=== PATIENT | female | born 1980 | race Hispanic/Latino ===

== ENCOUNTER 2022-01-06 01:23 | Day surgery (SDC) | payer BC, SELFPAY ==
[2022-01-02 13:48] VITALS: BMI 20.9
--- NOTE | 2022-01-02 13:50 | SUR.PREOP ---
Report to the Outpatient Waiting Room, entrance under the green pavilion located off [facility], at time _0830 on date _01/06/22 . OR Time: _1030 . Time changes happen often and if your time is changed the preop area will call you the afternoon before. - You and your visitor will be asked to self-screen and do not enter if you have any COVID symptoms. - Only one visitor and NO children visitors are allowed at this time. - The patient visitor is requested to leave or wait in car when not with patient due to restrictions. - A mask is required within the hospital. Patients may have clear liquids (water, carbonated beverages, clear teas, apple juice) until 3 hours prior to surgery with a maximum of 20 ounces. - No food from midnight until time of surgery - Infants may have breast milk until 4 hours before surgery, formula 6 hours prior to surgery. - Children will be allowed to drink immediately following surgery. If applicable, please bring a bottle or sippy cup to assist with drinking. Juice, water, soda, and popsicles are readily available. For infants on formula, please bring formula the day of surgery. Pacifiers are allowed. Take the following medications with a SIP of water the morning of surgery: ___n/a Medications to discontinue per physician n/a Date to take last dose___n/a Please no make-up, nail turkmen, hairspray, perfume, deodorant, or body powder the day of surgery. No jewelry (including any body piercings) or valuables the day of surgery, leave them at home. Please take a shower or bath the night before, or the morning of, surgery with an antibacterial soap. Wear comfortable, loose fitting clothing. Children are encouraged to wear pajamas. - Jewelry must be removed prior to entering the operating room. Rings and piercings that are not removed may be cut off. - The hospital will not accept responsibility for valuables. - Please leave all valuables, including medications, at home the day of surgery. If you are going home after surgery, a licensed dump truck driver must drive you home. - NO public transportation without another adult. - We recommend that an adult stay with you for 24 hours following discharge. - We also recommend that you do not drive, make important decision, drink alcoholic beverages, or take any drugs that were not prescribed by your health care provider for at least 24 hours after your discharge time. For Pediatric surgeries, we recommend two adults accompany the child home (only one inside the building at this time). Follow any additional instructions given to you from your surgeon. If you or anyone in your household have experienced Covid symptoms in the past week, please notify your surgeon or the nurse liaison at the phone number below for possible testing. Telephone instructions given to messi grossman and asked if any additional questions and then verbalized understanding. Patient advised to call surgeon office or pre surgery nurse liaison [phone] if any additional questions.
--- NOTE | 2022-01-05 17:44 | PM.IMHP ---
H&P: HPI History of Present Illness Date/Time: 01/05/22 17:44 Chief Complaint: High grade cervical dysplasia Narrative: Patient is a 41yo woman with history of MICAELA 1-2 who presents for a scheduled LEEP. Patient had a pap smear showing LGSIL in 10/2021. A colposcopy was performed and biopsies were positive for MICAELA 1-2 as well as a positive ECC that showed low grade dysplasia. Discussion had with patient and decision made proceed with LEEP procedure for further management. In general, patient reports feeling well today without complaints. Review of Systems Review of Systems: All systems reviewed & are unremarkable except as noted in HPI and below Constitutional: Constitutional: Reports as per HPI and Reports no additional constitutional complaints Eyes: Eyes: Reports as per HPI and Reports no additional eye complaints ENT: Reports system reviewed and no additional complaints, except as documented and Reports as per HPI Cardiovascular: Cardiovascular: Reports as per HPI and Reports no additional cardiovascular complaints Respiratory: Respiratory: Reports as per HPI and Reports no additional respiratory complaints Gastrointestinal: Gastrointestinal: Reports as per HPI and Reports no additional gastrointestinal complaints Genitourinary: Genitourinary: Reports no additional female genitourinary complaints and Reports as per HPI Musculoskeletal: Musculoskeletal: Reports no additional musculoskeletal complaints and Reports as per HPI Integumentary/Breasts: Skin/Breast: Reports system reviewed and no additional complaints, except as docu and Reports as per HPI Neurologic: Reports system reviewed and no additional complaints, except as documented and Reports as per HPI Psychiatric: Psychiatric: Reports no additional psychiatric complaints and Reports as per HPI Endocrine: Endocrine: Reports no additional endocrine complaints and Reports as per HPI Hematologic/Lymphatic: Hematologic/Lymphatic: Reports no additional hematologic/lymphatic complaints and Reports as per HPI Allergic/Immunologic: Allergic/Immunologic: Reports no additional allergic/immunologic complaints and Reports as per HPI PMFSH Past Medical History Medical History History of miscarriage LGSIL on Pap smear of cervix Surgical History Surgical History History of section x 2 [place] teeth removed Family History Family History Grandparent Breast cancer Other Diabetes mellitus Social History Social History Smoking status: Never smoker Alcohol intake: current Drinks per week: 10 Spiritual care concerns: No Meds Home Medications and Allergies Home Medications Medication Instructions Recorded Confirmed Type drospirenone 3 mg-estetrol 14.2 mg See Rx Instructions PO .COMPLEX #3 11/10/21 01/02/22 Rx (28) tablet ([facility]) packets Allergies Allergy/AdvReac Type Severity Reaction Status Date / Time No Known Allergies Allergy Verified 01/02/22 13:38 Exam Const: General: cooperative, healthy appearing, comfortable and no acute distress HENMT: Head: normal to inspection Ears: hearing grossly normal bilaterally Eyes: General: appearance normal, both eyes and all related structures Neck: Neck: normal visual inspection Resp: Effort & Inspection: normal respiratory effort Auscultation: clear to auscultation bilaterally Cardio: Rate: regular rate Rhythm: regular rhythm GI: Inspection: non-distended GI Palp: Yes Soft to palpation and No Tenderness to palpation present (GI) : Other: deferred to OR Back/Spine/Pelvis: Back: no CVA tenderness Skin: General skin exam: normal color and no rashes or lesions noted Neuro: General: patient oriented x3 Extrem: Right lower extremity: no edema Left l
[2022-01-06 09:14] VITALS: BP 113/69; PULSE 62; RESP 16; TEMP 36.6; O2SAT 100
--- NOTE | 2022-01-06 09:25 | P.PNAN_ITS ---
Anes - Initial Pre Proc Eval Procedure: Operation Date: 01/06/22 10:30 Proposed Procedures p Loop Electrical Excision Procedure - Nayla Ramirez MD Date/Time: 01/06/22 09:25 Surgeon: Nayla Ramirez MD Pre Op Diagnosis: cin1-2 Patient Data Age: 41 Gender: F Height: 1.6 m Weight: 53.63 kg Allergies Allergy/AdvReac Type Severity Reaction Status Date / Time No Known Allergies Allergy Verified 01/02/22 13:38 Home Medications Medication Instructions Recorded Confirmed Type drospirenone 3 mg-estetrol 14.2 mg See Rx Instructions PO .COMPLEX #3 11/10/21 01/02/22 Rx (28) tablet (Nextstell[facility]) packets Patient hx anesthesia problems: none Family hx anesthesia problems: none Results Review: All pre-operative results and documents have been reviewed as part of the pre-operative evaluation. [facility] Past Medical History Medical History History of miscarriage LGSIL on Pap smear of cervix Surgical History Surgical History History of section x 2 [place] teeth removed Family History Family History Grandparent Breast cancer Other Diabetes mellitus Social History Social History Smoking status: Never smoker Alcohol intake: current Drinks per week: 10 Living arrangements: with family Spiritual care concerns: No Anes - Eval Final PreProcedure Day of Procedure 01/06/22 09:25 Patient weight: normal Heart: regular rate and rhythm Lungs: clear to auscultation Airway: Mallampati scale class II Neurological: alert and oriented Last oral intake: >/= 8 hours ASA classification: I Emergent: no Anesthetic plan: proceed Anesthesia type and monitoring: general GIVS and standard monitoring Results Review: All pre-operative results and documents have been reviewed as part of the pre- operative evaluation. Informed Consent: The patient's anesthetic plan and its attendant risks and benefits were discussed with the patient/family/POA. Questions were solicited and answers provided to the satisfaction of the patient/family/POA.
[2022-01-06] MEDS: ACETAMINOPHEN 500 MG TABLET 1000 MG PO (09:29)
[2022-01-06] MEDS: LACTATED RINGERS 1,000 ML 30 ML IV CONT (09:34)
--- NOTE | 2022-01-06 09:45 | WPDHPUPDATE1 ---
History and Physical Update Update Date/Time: 01/06/22 09:45 History and Physical has been reviewed, including an updated exam of the patient. There are NO changes in the patient's condition. Risks, benefits, and alternatives have been discussed and questions answered. Patient agrees to proceed with procedure.
[2022-01-06] MEDS: KETOROLAC 30 MG/ML VIAL (*BKC) IV PUSH (09:50)
[2022-01-06] MEDS: IODINE/POTASSIUM IODIDE 8 ML SOLUTION TOPICAL (10:00)
[2022-01-06] MEDS: LIDOCAINE HCL 1% PF 30 ML VIAL 10 ML INFILTRATE (10:20)
[2022-01-06 10:29] VITALS: BP 93/47; PULSE 56; RESP 12; O2SAT 100
--- NOTE | 2022-01-06 10:41 | W.PM.PROC2 ---
Procedure Note - Detailed Date of Procedure 01/06/22 Pre-op Diagnosis MICAELA 1-2, positive ECC Post-op Diagnosis Same Procedure Performed Loop electrosurgical excision procedure Surgeon Nayla Ramirez MD Anesthesia MAC Findings wide area of non-uptake noted circumferentially around cervix Description of Procedure The patient was taken to the operating room where she self-transferred to the operating room table. She was placed in dorsal supine position. Anesthesia was administered and found to be adequate. The patient was repositioned in dorsal lithotomy position and prepped and draped in the usual sterile fashion. A coated bivalve speculum was inserted into the vagina and suction tubing was connected to the speculum. The cervix was well visualized. A paracervical block was performed with 1% lidocaine.? 5 cc of lidocaine was administered on both sides for a total of 10 cc. Lugol's solution was applied across the entire surface of the cervix. A wide area of non-uptake was visualized circumferentially around the cervix. A large-size loop was selected and connected to the electrical generator. This loop was used to make one pass across the anterior surface of the cervix. The specimen was removed and set aside. A second small pass along the superior aspect of the cervix was then made to ensure complete excision of the area of non-uptake. A top hat loop was then used to excise a deeper portion of the endocervical canal and this specimen was also set aside. Rollerball cautery was used to cauterize the entire excision site and margins of the excision bed. Excellent hemostasis was noted. The procedure was deemed complete. The vagina was dried and the speculum was removed. Specimen were prepared to be sent to pathology for analysis and tagged with a suture at 12:00. The patient was cleansed and dried.? She was taken out of the dorsal lithotomy position and awakened from anesthesia without difficulty.? She was transported to the recovery room in stable condition.? All sponge and instrument counts were correct at the end of the procedure. Estimated Blood Loss -5.0 IV Fluids 600 Urine Output -50.0 Drains No Packing No Pathology Yes (anterior portion of cervix (tagged at 12:00); top hat cervix (tagged at 12:00)) Complications No immediate complications Condition Stable Disposition PACU [facility] Billing Surgery - Charge Forward: Surgery Billing
[2022-01-06 11:59] VITALS: BP 91/63; PULSE 50; RESP 12
== END 2022-01-06 11:16 | disposition home or self-care (01) ==
PROVIDERS: Visit Provider Student in an Organized Health Care Education/Training Program
PROC: 0UBC7ZZ Excision of Cervix, Via Natural or Artificial Opening (ICD-10-PCS; CPT 57522; principal; 2022-01-06 10:30)
DX: N87.1 Moderate cervical dysplasia (principal)
CPT/HCPCS: 57522; 88305; 88307; 88342; A9270; J1100; J1885; J2250; J2405; J2704; J3010; J7120